=== PATIENT | male | born 1950 | race American Indian/Alaskan Native ===

== ENCOUNTER 2017-03-03 10:43 | Emergency (ER) | payer MEDICARE ==
[2017-03-03 10:44] VITALS: BMI 23.7
[2017-03-03 10:56] VITALS: TEMP 98.3
[2017-03-03] MEDS ORDERED: Lactated Ringer's 1,000 ML IV STA (11:39)
--- NOTE | 2017-03-03 11:55 | C.PDOC ---
History Of Present Illness 66 y/o male with PMH of Kidney stones presents to ED with complaints of hematuria for 2 days. Patient also complains of back pain worse on the right side. Denies nausea, vomiting, dysuria, fever, chills or any other complaints at this time. Time Seen by Provider: 03/03/17 11:38 Chief Complaint (Nursing): Male Genitourinary History Per: Patient History/Exam Limitations: no limitations Onset/Duration Of Symptoms: Days Current Symptoms Are (Timing): Still Present Quality Of Discomfort: "Pain" Associated Symptoms: Back Pain, Urinary Symptoms. denies: Fever, Chills, Nausea , Vomiting Past Medical History Reviewed: Historical Data, Nursing Documentation, Vital Signs Vital Signs: Last Vital Signs Temp 98.3 F 03/03/17 14:42 Pulse 69 03/03/17 14:42 Resp 18 03/03/17 14:42 BP 137/86 03/03/17 14:42 Pulse Ox 98 03/03/17 15:29 - Medical History PMH: Colonic Polyps, Kidney Stones, Pneumonia (2014) Surgical History: No Surg Hx - [facility] Procedures CORONAR ARTERIOGR-2 CATH (06/01/13) ENDOSC POLYPECTOMY OF LG INTEST (07/08/06) INJECT/INFUSE NEC (02/09/14) LEFT HEART CARDIAC CATH (06/01/13) LT HEART ANGIOCARDIOGRAM (06/01/13) Family History: States: No Known Family Hx - Social History Hx Alcohol Use: Yes Hx Substance Use: No Review Of Systems Constitutional: Negative for: Fever, Chills Gastrointestinal: Negative for: Nausea, Vomiting Genitourinary: Positive for: Hematuria. Negative for: Dysuria, Penile Discharge Musculoskeletal: Positive for: Back Pain Skin: Negative for: Rash Neurological: Negative for: Weakness, Numbness Physical Exam - Physical Exam Appears: Non-toxic, No Acute Distress Skin: Warm, Dry, No Rash Head: Atraumatic, Normacephalic Eye(s): bilateral: Normal Inspection, EOMI Oral Mucosa: Moist Neck: Supple Chest: Symmetrical, No Tenderness Cardiovascular: Rhythm Regular Respiratory: Normal Breath Sounds, No Rales, No Rhonchi, No Wheezing Gastrointestinal/Abdominal: Bowel Sounds, Soft, No Tenderness, No Distention, No Guarding, No Rebound Back: No CVA Tenderness, Other (paralumbar tenderness R>L) Extremity: Bilateral: Atraumatic, Normal Color And Temperature, Normal ROM Pulses: Left Radial: Normal, Right Radial: Normal Neurological/Psych: Oriented x3, Normal Speech Gait: Steady ED Course And Treatment - Laboratory Results Result Diagrams: 03/03/17 12:12 03/03/17 12:12 Lab Interpretation: No Acute Changes O2 Sat by Pulse Oximetry: 98 (RA) Pulse Ox Interpretation: Normal Medical Decision Making Medical Decision Making: Impression: hematuria, flank pain Plan: * CT abdomen Pelvis * Blood work * UA * Toradol Prior Visits: Notes and results from previous visits were reviewed. Progress Notes: Labs reviewed, unremarkable . UA shows blood and many RBCs CT shows Calculus within the mid left ureter and numerous distal left ureteral calculi. Additional punctate nonobstructing bilateral renal calculi. Mildly thick-walled urinary bladder. Recommend correlation with urinalysis if indicated. Enlarged prostate gland. Recommend correlation with PSA. See Full Report. Re-evaluation Time: 1430 Patient feels better. Patient is resting comfortably in no acute distress. Discussed results with patient and provide copy of lab and CT reports. Patient expresses understanding. Counseling was provided regarding the diagnosis and prognosis. All questions answered and there is agreement with the plan to discharge home with instructions and Rx. Patient stable for discharge. Return if symptoms persist or worsen. Reassessment Condition: Re-examined, Improved Dispo: Discharge home. Patient was recommended to follow up with PCP and Urology. Return to ED if symptoms worsen. Disposition Counseled Patient/Family Regarding: Studies Performed, Diagnosis, Need For Followup, Rx Given - Disposition Referrals: Rigoberto Candelario DO [Staff Provider] - Wesley Nicholas MD [Staff Provider] - Disposition: HOME/ ROUTINE Disposition Time: 14:45 Condition: IMPROVED Additional Instructions: Your Ct scan shows kidney stone to left side. Please make sure to drink water and follow up with urology Take Flomax to urinate and clear stone Take Naproxen for mild to moderate pain Take Percocet for severe pain Take Cipro as antibiotic for bladder infection Prescriptions: Ciprofloxacin [Cipro] 1 tab PO BID #14 tab Ibuprofen [Motrin] 600 mg PO Q8 #30 tab oxyCODONE/Acetaminophen [Percocet 5/325 mg Tab] 1 tab PO Q8 PRN #12 tab PRN Reason: Pain, Severe (8-10) Tamsulosin [Flomax] 0.4 mg PO DAILY #10 cap Instructions: Kidney Stones (DC) Forms: [employer] (Azeri) - POA Present On Arrival: None - Clinical Impression Clinical Impression: Renal calculus, Renal colic - PA / SNIPPER / Resident Statement MD/DO has reviewed & agrees with the documentation as recorded. - Scribe Statement The provider has reviewed the documentation as recorded by the Laithibce Lemus All medical record entries made by the Shanon were at my direction and personally dictated by me. I have reviewed the chart and agree that the record accurately reflects my personal performance of the history, physical exam, medical decision making, and the department course for this patient. I have also personally directed, reviewed, and agree with the discharge instructions and disposition.
[2017-03-03 12:15] LABS: BASO # 0.1 K/uL (0.0-0.2); BASO % 0.8 % (0.0-2.0); EOS # 0.2 K/uL (0.0-0.7); EOS % 3.1 % (0.0-4.0); HEMATOCRIT 49.3 % (35.0-51.0); LYMPH # 1.8 K/uL (1.0-4.3); LYMPH % 26.2 % (20.0-40.0); MEAN CELL VOLUME 99.1 fL (80.0-94.0); MEAN CORPUSCULAR HEMOGLOBIN 33.3 pg (27.0-31.0); MEAN CORPUSCULAR HGB CONC 33.6 g/dL (33.0-37.0); MEAN PLATELET VOLUME 8.9 fL (7.2-11.7); MONO # 0.6 K/uL (0.0-0.8); MONO % 9.5 % (0.0-10.0); RED CELL DISTRIBUTION WIDTH 13.2 % (11.5-14.5); WHITE BLOOD COUNT 6.8 K/uL (4.8-10.8)
[2017-03-03] MEDS ORDERED: Lactated Ringer's 1,000 ML ONE (12:25)
[2017-03-03 12:27] LABS: BLOOD UREA NITROGEN 14 mg/dL (9-20); CALCIUM 8.4 mg/dl (8.6-10.4); CARBON DIOXIDE 29 mmol/L (22-30); CHLORIDE 105 mmol/L (98-107); GFR AFRICAN-AMERICAN > 60; GLUCOSE,RANDOM 110 mg/dL (75-110); SODIUM 141 mmol/L (132-148)
[2017-03-03 12:31] LABS: RBC URINE 1370 /hpf (0-3); URINE BILIRUBIN NEGATIVE (NEGATIVE); URINE BLOOD 3+ (NEGATIVE); URINE COLOR Yellow (YELLOW); URINE GLUCOSE (UA) NORMAL (Normal); URINE KETONE NEGATIVE (NEGATIVE); URINE LEUKOCYTE ESTERASE NEG Leu/uL (Negative); URINE PROTEIN 1+ mg/dL (NEGATIVE); WBC URINE 9 /hpf (0-5)
[2017-03-03 12:34] LABS: URINE CALCIUM OXALATE CRYSTALS OCC /hpf (<OCC)
--- NOTE | 2017-03-03 14:11 | CT ---
PROCEDURE: CT Abdomen and Pelvis without Oral or IV contrast. HISTORY: right flank pain, hematuria COMPARISON: None available TECHNIQUE: Contiguous axial images of the abdomen and pelvis. No oral or IV contrast administered. Coronal and Sagittal reformats generated and reviewed. Radiation dose: Total exam DLP = 380.93 mGy-cm. This CT exam was performed using one or more of the following dose reduction techniques: Automated exposure control, adjustment of the mA and/or kV according to patient size, and/or use of iterative reconstruction technique. FINDINGS: There is limited evaluation of the solid organs without the administration of IV contrast. LOWER THORAX: No visible consolidation, pleural effusion, or pneumothorax. 8 mm calcified granuloma, right lung base. Emphysematous changes. LIVER: Unremarkable unenhanced appearance. GALLBLADDER AND BILE DUCTS: Unremarkable unenhanced appearance. PANCREAS: Unremarkable unenhanced appearance. SPLEEN: Unremarkable unenhanced appearance. ADRENALS: Unremarkable unenhanced appearance. KIDNEYS AND URETERS: Calculus within the mid left ureter and numerous distal left ureteral calculi (For example, images 113, 131, images 136 -140). Punctate nonobstructing bilateral renal calculi. No hydronephrosis or obstructing renal calculus. BLADDER: Mildly thick-walled urinary bladder. REPRODUCTIVE: The prostate gland appears enlarged ; recommend correlation with PSA. APPENDIX: The appendix appears within normal limits of caliber. No secondary signs of acute appendicitis. BOWEL: The stomach is nondistended. Lack of oral contrast limits evaluation for bowel pathology. The bowel loops appear within normal limits of caliber without evidence of intestinal obstruction. [id number]-[id number] constipation. PERITONEUM: No significant pelvic free fluid. No definite free air. LYMPH NODES: No bulky lymphadenopathy identified. VASCULATURE: No aortic aneurysm. BONES: Degenerative changes of the spine. Anterior bridging osteophytes of bilateral sacroiliac joints. OTHER FINDINGS: Fat and vessel containing left inguinal hernia. Fat, vessel, and fluid containing right inguinal hernia. IMPRESSION: Calculus within the mid left ureter and numerous distal left ureteral calculi. Additional punctate nonobstructing bilateral renal calculi. Mildly thick-walled urinary bladder. Recommend correlation with urinalysis if indicated. Enlarged prostate gland. Recommend correlation with PSA. Fat and vessel containing left inguinal hernia. Fat, vessel, and fluid containing right inguinal hernia. Additional incidental findings as above.
[2017-03-03 14:43] VITALS: BP 137/86; PULSE 69; RESP 18
[2017-03-03 15:30] VITALS: O2SAT 98
== END 2017-03-03 14:54 | disposition home or self-care (01) ==
LOC: C.ER 10:43
DX: N20.0 Calculus of kidney (principal)
CPT/HCPCS: 74176; 80048; 81001; 85025; 87086; 96361; 96374; 99284; J1885; J7120

== ENCOUNTER 2018-08-18 14:24 | Emergency (ER) | payer MEDICARE ==
[2018-08-18 14:25] VITALS: BMI 23.7
[2018-08-18 14:32] VITALS: O2SAT 97
[2018-08-18 15:49] LABS: BASO # 0.1 K/uL (0.0-0.2); BASO % 1.4 % (0.0-2.0); EOS # 0.1 K/uL (0.0-0.7); EOS % 1.8 % (0.0-4.0); HEMOGLOBIN 16.5 g/dL (12.0-18.0); LYMPH # 2.7 K/uL (1.0-4.3); LYMPH % 35.9 % (20.0-40.0); MEAN CELL VOLUME 98.9 fL (80.0-94.0); MEAN CORPUSCULAR HEMOGLOBIN 34.4 pg (27.0-31.0); MEAN CORPUSCULAR HGB CONC 34.8 g/dL (33.0-37.0); MEAN PLATELET VOLUME 9.3 fL (7.2-11.7); MONO # 0.6 K/uL (0.0-0.8); NEUT % 52.9 % (50.0-75.0); NRBC % 0.1 % (0.0-2.0); RBC 4.79 Mil/uL (4.40-5.90); RED CELL DISTRIBUTION WIDTH 13.5 % (11.5-14.5); WHITE BLOOD COUNT 7.6 K/uL (4.8-10.8)
--- NOTE | 2018-08-18 15:53 | RAD ---
Date of service: 08/18/2018 HISTORY: SOB COMPARISON: 12/22/2016 TECHNIQUE: Chest PA and lateral views FINDINGS: LUNGS: No active pulmonary disease. PLEURA: No significant pleural effusion identified. No pneumothorax apparent. CARDIOVASCULAR: No aortic atherosclerotic calcification present. Normal cardiac size. No pulmonary vascular congestion. OSSEOUS STRUCTURES: No significant abnormalities. VISUALIZED UPPER ABDOMEN: Normal. OTHER FINDINGS: None. IMPRESSION: No active disease.
[2018-08-18 15:59] LABS: ALB/GLOB RATIO 1.5 (1.0-2.1); ALBUMIN 4.7 g/dL (3.5-5.0); ALT/SGPT 22 U/L (21-72); AST/SGOT 32 U/L (17-59); BLOOD UREA NITROGEN 15 mg/dL (9-20); CALCIUM 9.6 mg/dl (8.6-10.4); GFR NON-AFRICAN AMERICAN > 60
[2018-08-18 16:10] LABS: B-TYPE NATRIURETIC PEPTIDE 20.1 pg/mL (0-900)
[2018-08-18 16:42] VITALS: BP 128/79; PULSE 58; RESP 20; TEMP 98.3
--- NOTE | 2018-08-18 17:21 | C.PDOC ---
History Of Present Illness 68 y/o male pt with hx of benign positional vertigo presents to the ER c/o dizziness withe movement of his head that started yesterday. Pt had a brain MRI on December 2012, which showed nml results. Pt does no have meclizine to take at home. Pt has no other associated sx or complaints at this time. Time Seen by Provider: 08/18/18 14:41 Chief Complaint (Nursing): Dizziness/Lightheaded History Per: Patient History/Exam Limitations: no limitations Onset/Duration Of Symptoms: Days (x1) Current Symptoms Are (Timing): Still Present Activity At Onset Of Symptoms: Change In Head Position Past Medical History Reviewed: Historical Data, Nursing Documentation, Vital Signs Vital Signs: Last Vital Signs Temp 98.3 F 08/18/18 16:41 Pulse 58 L 08/18/18 16:41 Resp 20 08/18/18 16:41 BP 128/79 08/18/18 16:41 Pulse Ox 97 08/18/18 16:41 Primary Care Provider: Steph Butts - Medical History PMH: Colonic Polyps, Kidney Stones, Pneumonia (2014) - [facility] Procedures CORONAR ARTERIOGR-2 CATH (06/01/13) ENDOSC POLYPECTOMY OF LG INTEST (07/08/06) INJECT/INFUSE NEC (02/09/14) LEFT HEART CARDIAC CATH (06/01/13) LT HEART ANGIOCARDIOGRAM (06/01/13) Family History: States: No Known Family Hx - Social History Hx Alcohol Use: No Hx Substance Use: No Review Of Systems Except As Marked, All Systems Reviewed And Found Negative. Constitutional: Negative for: Fever, Chills Eyes: Negative for: Vision Change Cardiovascular: Negative for: Chest Pain Respiratory: Negative for: Cough, Shortness of Breath Gastrointestinal: Negative for: Nausea, Vomiting Neurological: Positive for: Dizziness Physical Exam - Physical Exam Appears: Non-toxic, No Acute Distress, Other (tall, thin, black male ) Skin: Warm, Dry Head: Atraumatic, Normacephalic Eye(s): bilateral: PERRL, EOMI Ear(s): Bilateral: Normal Nose: Normal Oral Mucosa: Moist Throat: Normal Chest: Symmetrical Cardiovascular: Rhythm Regular Respiratory: Normal Breath Sounds Gastrointestinal/Abdominal: Soft, No Tenderness Extremity: Normal ROM (x4) Neurological/Psych: Oriented x3, Normal Speech, Other (vertigo provoked by rapid movement of left to right) ED Course And Treatment - Laboratory Results Result Diagrams: 08/18/18 15:41 08/18/18 15:41 Lab Results: Troponin I < 0.0120 ng/mL (0.00-0.120) 08/18/18 15:41 NT-Pro-B Natriuret Pep 20.1 pg/mL (0-900) 08/18/18 15:41 Total Bilirubin 0.7 mg/dL (0.2-1.3) 08/18/18 15:41 AST 32 U/L (17-59) 08/18/18 15:41 ALT 22 U/L (21-72) 08/18/18 15:41 Alkaline Phosphatase 25 U/L (38-126) L 08/18/18 15:41 Total Protein 7.8 g/dL (6.3-8.3) 08/18/18 15:41 Albumin 4.7 g/dL (3.5-5.0) 08/18/18 15:41 Globulin 3.1 gm/dL (2.2-3.9) 08/18/18 15:41 Albumin/Globulin Ratio 1.5 (1.0-2.1) 08/18/18 15:41 O2 Sat by Pulse Oximetry: 97 (RA) Pulse Ox Interpretation: Normal - Other Rad chest X-Ray: Read By Radiologist Interpretation: IMPRESSION: No active disease. Medical Decision Making Medical Decision Making: Plans: -- labs -- CXR -- antivert -- motrin recurrent BPV resolved w ED tx ? R arm tremor, not noted in ED evolving slowly for 3 yrs pt prefers to f/u w Dr. Roberson- who will refer to Neuro for further eval /meds Disposition Doctor Will See Patient In The: Office Counseled Patient/Family Regarding: Studies Performed, Diagnosis - Disposition Referrals: [facility] [Outside] [facility] [Outside] Steph Butts MD [Staff Provider] - Disposition: HOME/ ROUTINE Disposition Time: 17:21 Condition: GOOD Additional Instructions: BPV Meclizine 25 mg every 8 hours as needed Always take with Motrin/Advil 400 mg (makes it work better) R arm tremor/anxiety Have Dr. Butts refer you for further Neuro eval Prescriptions: Meclizine [Meclizine*] 25 mg PO Q6 PRN #30 tab PRN Reason: vertigo Instructions: Vertigo (a Type of Dizziness) (DC) Forms: [employer] (Finnish) - Clinical Impression Clinical Impression: BPV (benign positional vertigo) - Scribe Statement The provider has reviewed the documentation as recorded by the Scribe Valencia Mccray Provider Attestation: All medical record entries made by the Scribe were at my direction and personally dictated by me. I have reviewed the chart and agree that the record accurately reflects my personal performance of the history, physical exam, medical decision making, and the department course for this patient. I have also personally directed, reviewed, and agree with the discharge instructions and disposition.
== END 2018-08-18 17:43 | disposition home or self-care (01) ==
LOC: C.ER 14:24
DX: H81.10 Benign paroxysmal vertigo, unspecified ear (principal)